=== PATIENT | female | born 1945 | race American Indian/Alaskan Native ===

== ENCOUNTER 2017-05-18 19:31 | Inpatient (IN) | payer MEDICARE ==
[2017-05-18 21:10] LABS: Basophils % (Auto) 0.8 % (0.0-1.8); Eosinophils % (Auto) 1.7 % (0.0-4.3); Hematocrit 39.9 % (30.3-42.9); Hemoglobin 13.1 gm/dl (10.1-14.3); Mean Corpuscular HGB Conc 33 % (30-34); Mean Corpuscular Hemoglobin 30 pg (28-32); Mean Corpuscular Volume 91 fl (79-97); Platelet Count 274 K/mm3 (140-440); Red Cell Distribution Width 15.2 % (13.2-15.2); White Blood Count 6.6 K/mm3 (4.5-11.0)
[2017-05-18] MEDS ORDERED: APRESOLINE IV ONE (21:12)
--- NOTE | 2017-05-18 21:16 | Emergency Department Report ---
ED Chest Pain HPI - General Chief Complaint: Chest Pain Stated Complaint: CHEST PAIN Time Seen by Provider: 05/18/17 20:49 Source: patient, family, EMS Mode of arrival: Stretcher Limitations: No Limitations - History of Present Illness Initial Comments: 71 YO FEMALE C/O SHORTNESS OF BREATH AND CHEST PRESSURE SINCE YESTERDAY. SHE HAS ALSO BEEN NAUSEATED AND VOMITED UP FOOD CONTENTS. SHE HAS NO RADIATION OF THE PRESSURE AND IS WEAK ON THE LEFT UPPER AND LOWER EXTREMITY FROM PRIOR CVA IN 11/2016. SH EWAS IN REHAB FROM MID NOVEMBER UNTIL MARCH 152016. SHE HAS H/ O RIGHT AND LEFT CVA AND HTN, DM TYPE II. SHE DENIES CHF/KS OR ANY RHYTHM PROBLEMS MD Complaint: other (COUGH) -: days(s) (1) Onset: during rest Pain Location: substernal Pain Radiation: none Severity: mild Severity scale (0 -10): 4 - Related Data Home Medications Medication Instructions Recorded Confirmed Last Taken Carvedilol 05/18/17 Unknown Docusate Sodium [Stool Softener] 100 mg PO 05/18/17 Unknown Meclizine [Antivert] 12.5 mg PO 05/18/17 Unknown Metformin HCl 500 mg PO 05/18/17 Unknown hydrALAZINE [Apresoline] 50 mg PO 05/18/17 Unknown traMADol [Ultram] 50 mg PO 05/18/17 Unknown Allergies Allergy/AdvReac Type Severity Reaction Status Date / Time Penicillins AdvReac Unknown Verified 05/18/17 20:18 Heart Score - HEART Score History: Highly suspicious EKG: Non-specific Age: > 65 Risk factors: > 3 risk factors or hx of atherosclerotic disease Troponin: < normal limit HEART Score: 7 ED Review of Systems ROS: Stated complaint: CHEST PAIN Other details as noted in HPI Constitutional: denies: chills, fever Eyes: denies: eye pain, eye discharge, vision change ENT: denies: ear pain, throat pain Respiratory: denies: cough, shortness of breath, wheezing Cardiovascular: denies: palpitations Endocrine: no symptoms reported Gastrointestinal: denies: abdominal pain, nausea, diarrhea Genitourinary: denies: urgency, dysuria, discharge Musculoskeletal: denies: back pain, joint swelling, arthralgia Skin: denies: rash, lesions Neurological: denies: headache, weakness, paresthesias Psychiatric: denies: anxiety, depression Hematological/Lymphatic: denies: easy bleeding, easy bruising ED Past Medical Hx - Past Medical History Previous Medical History?: Yes Hx Hypertension: Yes Hx Asthma: Yes - Surgical History Past Surgical History?: No - Social History Smoking Status: Unknown if ever smoked Substance Use Type: None - Medications Home Medications: Home Medications Medication Instructions Recorded Confirmed Last Taken Type Carvedilol 05/18/17 Unknown History Docusate Sodium [Stool Softener] 100 mg PO 05/18/17 Unknown History Meclizine [Antivert] 12.5 mg PO 05/18/17 Unknown History Metformin HCl 500 mg PO 05/18/17 Unknown History hydrALAZINE [Apresoline] 50 mg PO 05/18/17 Unknown History traMADol [Ultram] 50 mg PO 05/18/17 Unknown History ED Physical Exam - General Limitations: No Limitations General appearance: alert, in no apparent distress - Head Head exam: Present: atraumatic, normocephalic - Eye Eye exam: Present: normal appearance - ENT ENT exam: Present: mucous membranes moist - Neck Neck exam: Present: normal inspection, full ROM - Respiratory Respiratory exam: Present: normal lung sounds bilaterally. Absent: respiratory distress - Cardiovascular Cardiovascular Exam: Present: regular rate, normal rhythm. Absent: systolic murmur, diastolic murmur, rubs, gallop - GI/Abdominal GI/Abdominal exam: Present: soft, normal bowel sounds - Rectal Rectal exam: Present: deferred - Extremities Exam Extremities exam: Present: normal inspection, full ROM - Back Exam Back exam: Present: normal inspection, full ROM - Neurological Exam Neurological exam: Present: alert, oriented X3, CN II-XII intact, other (LEFT SIDED PARALYSIS) - Psychiatric Psychiatric exam: Present: normal affect, normal mood - Skin Skin exam: Present: warm, dry, intact, normal color. Absent: rash ED Course Vital Signs 05/18/17 05/18/17 05/18/17 17:06 19:54 20:00 Temperature Pulse Rate 88 93 H Respiratory 11 L 14 Rate Blood Pressure 112/42 226/116 O2 Sat by Pulse 100 90 97 Oximetry 05/18/17 05/18/17 05/18/17 20:14 20:16 20:30 Temperature 98.5 F Pulse Rate 96 H 94 H 91 H Respiratory 16 20 Rate Blood Pressure 202/105 202/125 112/42 O2 Sat by Pulse 94 95 97 Oximetry 05/18/17 05/18/17 05/18/17 20:45 20:46 21:00 Temperature Pulse Rate 89 82 Respiratory 24 10 L 10 L Rate Blood Pressure 112/42 237/119 O2 Sat by Pulse 96 98 99 Oximetry 05/18/17 05/18/17 05/18/17 21:16 21:30 21:46 Temperature Pulse Rate 85 94 H 83 Respiratory 19 18 11 L Rate Blood Pressure 233/110 233/110 256/145 O2 Sat by Pulse 100 97 97 Oximetry 05/18/17 05/18/17 05/18/17 22:00 22:16 22:30 Temperature Pulse Rate 90 92 H 105 H Respiratory 10 L 14 17 Rate Blood Pressure 256/145 239/118 O2 Sat by Pulse 97 97 99 Oximetry 05/18/17 22:46 Temperature Pulse Rate 115 H Respiratory 17 Rate Blood Pressure 232/125 O2 Sat by Pulse 98 Oximetry DELMIS score - Delmis Score Age > 65: (1) Yes Aspirin use within the Past 7 Days: (1) Yes 3 or more CAD Risk Factors: (1) Yes 2 or more Angina events in past 24 hrs: (0) No Known CAD with more than 50% Stenosis: (0) No Elevated Cardiac Markers: (0) No ST Deviation Greater than 0.5mm: (0) No DELMIS Score: 3 ED Medical Decision Making - Lab Data Result diagrams: 05/18/17 20:25 05/18/17 21:25 - EKG Data -: EKG Interpreted by Ny EKG shows normal: sinus rhythm, axis, intervals Rate: normal (87) - EKG Data Interpretation: other (Q IN TO V2) - Radiology Data Radiology results: report reviewed (CXR:LUNGS CLEAR) Critical care attestation.: If time is entered above; I have spent that time in minutes in the direct care of this critically ill patient, excluding procedure time. ED Disposition Clinical Impression: Unstable angina, Hypertension associated with diabetes, Hyperglycemia Dyspnea Qualifiers: Dyspnea type: unspecified Qualified Code(s): R06.00 - Dyspnea, unspecified Disposition: OP ADMIT IP TO THIS HOSP Is pt being admited?: Yes Does the pt Need Aspirin: Yes Condition: Stable Instructions: Angina (ED), Diabetes Mellitus Type 2 in Adults (ED) Referrals: PRETTY JAY MD [Primary Care Provider] - 3-5 Days Time of Disposition: 23:07 (DR ELIAZAR GUDINO AND WILL ADMIT THE PT TO THE HOSPITAL)
[2017-05-18 21:20] LABS: INR 0.88 (0.87-1.13)
[2017-05-18 21:59] LABS: Anion Gap 20 mmol/L; BUN/Creatinine Ratio 13; Blood Urea Nitrogen 10 mg/dL (7-17); Carbon Dioxide 27 mmol/L (22-30); Chloride 98.5 mmol/L (98-107); Glucose 123 mg/dL (65-100); Potassium 3.7 mmol/L (3.6-5.0); Sodium 142 mmol/L (137-145)
--- NOTE | 2017-05-18 22:06 | XRay Report ---
FINAL REPORT EXAM: XR CHEST 1V AP HISTORY: CHEST PAIN COMPARISON: None available. FINDINGS: Frontal view(s) of the chest obtained. Cardiac silhouette within normal limits. No gross consolidation or effusion. No pneumothorax. Tiny calcified granuloma at the right lung base. Mild tortuosity of the thoracic aorta. IMPRESSION: No grossly acute findings.
[2017-05-18 22:07] LABS: Alanine Aminotransferase 13 units/L (7-56); Albumin 4.2 g/dL (3.9-5); Albumin/Globulin Ratio 1.1 %; Alkaline Phosphatase 95 units/L (35-129); Total Protein 8.1 g/dL (6.3-8.2)
[2017-05-18 22:08] LABS: Bilirubin,Direct < 0.2 mg/dL (0-0.2); Bilirubin,Indirect 0.4 mg/dL
[2017-05-18] MEDS ORDERED: CATAPRES PO ONE (23:03)
[2017-05-18] MEDS ORDERED: CATAPRES ONE (23:08)
[2017-05-19] MEDS ORDERED: MORPHINE IV PRN
[2017-05-19] MEDS ORDERED: TYLENOL PO PRN
[2017-05-19] MEDS ORDERED: ZOFRAN IV PRN
[2017-05-19] MEDS ORDERED: DULCOLAX PR PRN
[2017-05-19] MEDS ORDERED: AMBIEN PO PRN
[2017-05-19] MEDS ORDERED: PERCOCET 5/325 PO PRN
[2017-05-19] MEDS ORDERED: D5NS 1,000 ML IV SCH
[2017-05-19] MEDS ORDERED: MILK OF MAGNESIA PO PRN
--- NOTE | 2017-05-19 | History and Physical Report ---
History of Present Illness Date of examination: 05/19/17 Date of admission: 05/18/2017 to Chief complaint: Chief complaint Chest pain since yesterday History of present illness: History of Present Illness 71-year-old female with past medical history of hyperten and diabetes and recent cerebrovascular accident in November 2016 comes in for chest pressure since yesterday. Pain is about 8 on 10. Associated with nausea and vomiting x 1. No radiation or shortness of breath History of hypertension diabetes and CVA complicated with left hemiparesis.no shortness of breath. No diaphoresis. Past Medical History Previous Medical History?: Yes Hx Hypertension: Yes Hx Asthma: Yes Surgical History Past Surgical History?: No Social History Smoking Status: Unknown if ever smoked Substance Use Type: None Medications Home Medications: Home Medications Medication Instructions Recorded Confirmed Last Taken Type Carvedilol 05/18/17 Unknown History Docusate Sodium [Stool Softener] 100 mg PO 05/18/17 Unknown History Meclizine [Antivert] 12.5 mg PO 05/18/17 Unknown History Metformin HCl 500 mg PO 05/18/17 Unknown History hydrALAZINE [Apresoline] 50 mg PO 05/18/17 Unknown History traMADol [Ultram] 50 mg PO 05/18/17 Unknown History Review of Systems ROS: Stated complaint: CHEST PAIN Other details as noted in HPI Constitutional: denies: chills, fever Eyes: denies: eye pain, eye discharge, vision change ENT: denies: ear pain, throat pain Respiratory: denies: cough, shortness of breath, wheezing Cardiovascular: denies: palpitations Endocrine: no symptoms reported Gastrointestinal: denies: abdominal pain, nausea, diarrhea Genitourinary: denies: urgency, dysuria, discharge Musculoskeletal: denies: back pain, joint swelling, arthralgia Skin: denies: rash, lesions Neurological: denies: headache, weakness, paresthesias Psychiatric: denies: anxiety, depression Hematological/Lymphatic: denies: easy bleeding, easy bruising Medications and Allergies Allergies Allergy/AdvReac Type Severity Reaction Status Date / Time Penicillins AdvReac Unknown Verified 05/18/17 20:18 Home Medications Medication Instructions Recorded Confirmed Last Taken Type Carvedilol 05/18/17 Unknown History Docusate Sodium [Stool Softener] 100 mg PO BID 05/18/17 05/19/17 Unknown History Meclizine [Antivert] 12.5 mg PO 05/18/17 Unknown History Metformin HCl 500 mg PO 05/18/17 Unknown History hydrALAZINE [Apresoline] 50 mg PO 05/18/17 Unknown History traMADol [Ultram] 50 mg PO 05/18/17 Unknown History Active Meds: Active Medications Aspirin (Aspirin) 325 mg PO QDAY MARCELLA Exam - Constitutional Vitals: Temp Pulse Resp BP Pulse Ox 98.5 F 116 H 22 171/135 98 05/18/17 20:14 05/18/17 23:30 05/18/17 23:30 05/18/17 23:30 05/18/17 23:30 General appearance: Present: no acute distress, well-nourished - EENT Eyes: Present: PERRL ENT: hearing intact, clear oral mucosa - Neck Neck: Present: supple, normal ROM - Respiratory Respiratory effort: normal Respiratory: bilateral: CTA - Cardiovascular Heart rate: 80 Rhythm: regular Heart Sounds: Present: S1 & S2. Absent: rub, click - Extremities Extremities: no ischemia, pulses intact, pulses symmetrical, No edema Peripheral Pulses: within normal limits - Abdominal General gastrointestinal: Present: soft, non-tender, non-distended, normal bowel sounds Female genitourinary: Present: normal - Integumentary Integumentary: Present: clear, warm, dry - Musculoskeletal Musculoskeletal: gait normal, strength equal bilaterally - Psychiatric Psychiatric: appropriate mood/affect, intact judgment & insight - Neurologic Neurologic: CNII-XII intact, moves all extremities - Allied Health Allied health notes reviewed: nursing, case management Results - Labs CBC & Chem 7: 05/18/17 20:25 05/18/17 21:25 Labs: Laboratory Last Values WBC 6.6 K/mm3 (4.5-11.0) 05/18/17 20:25 RBC 4.40 M/mm3 (3.65-5.03) 05/18/17 20:25 Hgb 13.1 gm/dl (10.1-14.3) 05/18/17 20:25 Hct 39.9 % (30.3-42.9) 05/18/17 20:25 MCV 91 fl (79-97) 05/18/17 20:25 MCH 30 pg (28-32) 05/18/17 20:25 MCHC 33 % (30-34) 05/18/17 20:25 RDW 15.2 % (13.2-15.2) 05/18/17 20:25 Plt Count 274 K/mm3 (140-440) 05/18/17 20:25 Lymph % (Auto) 40.2 % (13.4-35.0) H 05/18/17 20:25 King % (Auto) 11.7 % (0.0-7.3) H 05/18/17 20:25 Eos % (Auto) 1.7 % (0.0-4.3) 05/18/17 20:25 Baso % (Auto) 0.8 % (0.0-1.8) 05/18/17 20:25 Lymph # 2.6 K/mm3 (1.2-5.4) 05/18/17 20:25 King # 0.8 K/mm3 (0.0-0.8) 05/18/17 20:25 Eos # 0.1 K/mm3 (0.0-0.4) 05/18/17 20:25 Baso # 0.1 K/mm3 (0.0-0.1) 05/18/17 20:25 Seg Neutrophils % 45.6 % (40.0-70.0) 05/18/17 20:25 Seg Neutrophils # 3.0 K/mm3 (1.8-7.7) 05/18/17 20:25 PT 12.4 Sec. (12.2-14.9) 05/18/17 20:25 INR 0.88 (0.87-1.13) 05/18/17 20:25 D-Dimer 263 ng/mlDDU (0-234) H 05/18/17 20:25 Sodium 142 mmol/L (137-145) 05/18/17 21:25 Potassium 3.7 mmol/L (3.6-5.0) 05/18/17 21:25 Chloride 98.5 mmol/L (98-107) 05/18/17 21:25 Carbon Dioxide 27 mmol/L (22-30) 05/18/17 21:25 Anion Gap 20 mmol/L 05/18/17 21:25 BUN 10 mg/dL (7-17) 05/18/17 21:25 Creatinine 0.8 mg/dL (0.7-1.2) 05/18/17 21:25 Estimated GFR > 60 ml/min 05/18/17 21:25 BUN/Creatinine Ratio 13 % 05/18/17 21:25 Glucose 123 mg/dL (65-100) H 05/18/17 21:25 Calcium 10.0 mg/dL (8.4-10.2) 05/18/17 21:25 Total Bilirubin 0.60 mg/dL (0.1-1.2) 05/18/17 20:25 Direct Bilirubin < 0.2 mg/dL (0-0.2) 05/18/17 20:25 Indirect Bilirubin 0.4 mg/dL 05/18/17 20:25 AST 14 units/L (5-40) 05/18/17 20:25 ALT 13 units/L (7-56) 05/18/17 20:25 Alkaline Phosphatase 95 units/L (35-129) 05/18/17 20:25 Troponin T < 0.010 ng/mL (0.00-0.029) 05/18/17 21:25 NT-Pro-B Natriuret Pep 529.4 pg/mL (0-900) 05/18/17 21:19 Total Protein 8.1 g/dL (6.3-8.2) 05/18/17 20:25 Albumin 4.2 g/dL (3.9-5) 05/18/17 20:25 Albumin/Globulin Ratio 1.1 % 05/18/17 20:25 Short CBC 05/18/17 Range/Units 20:25 WBC 6.6 (4.5-11.0) K/mm3 Hgb 13.1 (10.1-14.3) gm/dl Hct 39.9 (30.3-42.9) % Plt Count 274 (140-440) K/mm3 BMP 05/18/17 21:25 Sodium 142 Potassium 3.7 Chloride 98.5 Carbon Dioxide 27 BUN 10 Creatinine 0.8 Glucose 123 H Calcium 10.0 Cardiac Enzymes 05/18/17 05/18/17 05/19/17 Range/Units 21:25 23:03 02:48 Troponin T < 0.010 < 0.010 < 0.010 (0.00-0.029) ng/mL Liver Function 05/18/17 Range/Units 20:25 Total Bilirubin 0.60 (0.1-1.2) mg/dL Direct Bilirubin < 0.2 (0-0.2) mg/dL AST 14 (5-40) units/L ALT 13 (7-56) units/L Alkaline Phosphatase 95 (35-129) units/L Albumin 4.2 (3.9-5) g/dL - Imaging and Cardiology EKG: report reviewed (normal sinus rhythm no acute ST-T wave changes) Assessment and Plan Advance Directives: Yes (full code) VTE prophylaxis?: Chemical Plan of care discussed with patient/family: Yes - Patient Problems (1) Chest pain Current Visit: Yes Status: Acute Qualifiers: Chest pain type: unspecified Qualified Code(s): R07.9 - Chest pain, unspecified Plan to address problem: chest pain pathway initiated. Patient to get serial cardiac enzymes and Lexiscan in the morning. Differential was of costochondrit and gastroesophageal of his history (2) Hypertension Current Visit: Yes Status: Chronic Qualifiers: Hypertension type: essential hypertension Qualified Code(s): I10 - Essential (primary) hypertension Plan to address problem: continue antihypertensives in the form of hydralazineand Coreg. (3) Type 2 diabetes mellitus Current Visit: Yes Status: Chronic Qualifiers: Diabetes mellitus complication status: without complication Diabetes mellitus care home insulin use: without termite technician use Qualified Code(s): E11.9 - Type 2 diabetes mellitus without complications Plan to address problem: check A1c. coverage for now (4) Chronic pain Current Visit: Yes Status: Chronic Qualifiers: Chronic pain type: chronic pain syndrome Qualified Code(s): G89.4 - Chronic pain syndrome Plan to address problem: on tramadol (5) DVT prophylaxis Current Visit: Yes Status: Acute Plan to address problem: on Lovenox
[2017-05-19] MEDS ORDERED: APRESOLINE PO SCH (06:00)
[2017-05-19 07:17] LABS: Creatine Kinase MB 1.2 ng/mL (0.0-4.0)
[2017-05-19 07:19] LABS: Creatine Kinase 78 units/L (30-135)
[2017-05-19] MEDS ORDERED: LEXISCAN IV ONE ×2 (09:18→09:39)
[2017-05-19 10:50] LABS: Creatine Kinase MB 1.3 ng/mL (0.0-4.0)
[2017-05-19 10:51] LABS: Creatine Kinase 58 units/L (30-135)
[2017-05-19] MEDS ORDERED: ZOFRAN ONE (11:52)
[2017-05-19] MEDS ORDERED: APRESOLINE IV PRN (13:54)
--- NOTE | 2017-05-19 13:55 | Progress Note ---
Assessment and Plan Assessment and plan: Patient is a 71-year-old female with past medical history of hypertension and diabetes and recent cerebrovascular accident in November 2016 comes in for chest pressure since yesterday. Patient was in Rehab from November till mar 15 2017 per hx. Patient informs me that she had a prior stroke in the 80s That affected the right side. Pain is about 8 on 10. Associated with nausea and vomiting x 1. No radiation or shortness of breath History of hypertension diabetes and CVA complicated with left hemiparesis.no shortness of breath. No diaphoresis. Atypical chest pain Left Hemiparesis Hypertensive urgency Type 2 DM with Hyperglycemia Chronic pain syndrom Sinus Tachycardia PLAN Supportive care STRESS TEST NEG Chest pain likely secondary to Hypertension Insulin adjusted Resume Home meds May need adjustment BP Meds Continue chronic management Unsure why patient is not on ASA and Statin, patient not sure, states she was on before. Had a non life threatening GI bleed in the 80s. Now with a second stroke. Will start low dose ASA and statin and patient and family will follow with PCP DVT/GI prophy History Interval history: Patient seen and examined in no acute distress. Hospitalist Physical - Physical exam Narrative exam: General appearance: Present: no acute distress, well-nourished - EENT Eyes: Present: PERRL ENT: hearing intact, clear oral mucosa - Neck Neck: Present: supple, normal ROM - Respiratory Respiratory effort: normal Respiratory: bilateral: CTA - Cardiovascular Heart rate: 80 Rhythm: regular Heart Sounds: Present: S1 & S2. Absent: rub, click - Extremities Extremities: no ischemia, pulses intact, pulses symmetrical, No edema Peripheral Pulses: within normal limits - Abdominal General gastrointestinal: Present: soft, non-tender, non-distended, normal bowel sounds Female genitourinary: Present: normal - Integumentary Integumentary: Present: clear, warm, dry - Musculoskeletal Musculoskeletal: gait normal, strength equal bilaterally - Psychiatric Psychiatric: appropriate mood/affect, intact judgment & insight - Neurologic Neurologic: CNII-XII intact, left lower ext with motor strength 3/5 - Constitutional Vitals: Temp Pulse Resp BP Pulse Ox 97.7 F 118 H 18 202/92 96 05/19/17 07:49 05/19/17 11:49 05/19/17 07:49 05/19/17 11:49 05/19/17 07:50 General appearance: Present: no acute distress, well-nourished Results - Labs CBC & Chem 7: 05/20/17 04:30 05/20/17 04:30 Labs: Laboratory Last Values WBC 6.6 K/mm3 (4.5-11.0) 05/18/17 20:25 RBC 4.40 M/mm3 (3.65-5.03) 05/18/17 20:25 Hgb 13.1 gm/dl (10.1-14.3) 05/18/17 20:25 Hct 39.9 % (30.3-42.9) 05/18/17 20:25 MCV 91 fl (79-97) 05/18/17 20:25 MCH 30 pg (28-32) 05/18/17 20:25 MCHC 33 % (30-34) 05/18/17 20:25 RDW 15.2 % (13.2-15.2) 05/18/17 20:25 Plt Count 274 K/mm3 (140-440) 05/18/17 20:25 Lymph % (Auto) 40.2 % (13.4-35.0) H 05/18/17 20:25 Kleberg % (Auto) 11.7 % (0.0-7.3) H 05/18/17 20:25 Eos % (Auto) 1.7 % (0.0-4.3) 05/18/17 20:25 Baso % (Auto) 0.8 % (0.0-1.8) 05/18/17 20:25 Lymph # 2.6 K/mm3 (1.2-5.4) 05/18/17 20:25 Kleberg # 0.8 K/mm3 (0.0-0.8) 05/18/17 20:25 Eos # 0.1 K/mm3 (0.0-0.4) 05/18/17 20:25 Baso # 0.1 K/mm3 (0.0-0.1) 05/18/17 20:25 Seg Neutrophils % 45.6 % (40.0-70.0) 05/18/17 20:25 Seg Neutrophils # 3.0 K/mm3 (1.8-7.7) 05/18/17 20:25 PT 12.4 Sec. (12.2-14.9) 05/18/17 20:25 INR 0.88 (0.87-1.13) 05/18/17 20:25 D-Dimer 263 ng/mlDDU (0-234) H 05/18/17 20:25 Sodium 142 mmol/L (137-145) 05/18/17 21:25 Potassium 3.7 mmol/L (3.6-5.0) 05/18/17 21:25 Chloride 98.5 mmol/L (98-107) 05/18/17 21:25 Carbon Dioxide 27 mmol/L (22-30) 05/18/17 21:25 Anion Gap 20 mmol/L 05/18/17 21:25 BUN 10 mg/dL (7-17) 05/18/17 21:25 Creatinine 0.8 mg/dL (0.7-1.2) 05/18/17 21:25 Estimated GFR > 60 ml/min 05/18/17 21:25 BUN/Creatinine Ratio 13 % 05/18/17 21:25 Glucose 123 mg/dL (65-100) H 05/18/17 21:25 POC Glucose 130 (70-105) H 05/19/17 07:57 Hemoglobin A1c 7.2 % (4-6) H 05/19/17 00:09 Calcium 10.0 mg/dL (8.4-10.2) 05/18/17 21:25 Total Bilirubin 0.60 mg/dL (0.1-1.2) 05/18/17 20:25 Direct Bilirubin < 0.2 mg/dL (0-0.2) 05/18/17 20:25 Indirect Bilirubin 0.4 mg/dL 05/18/17 20:25 AST 14 units/L (5-40) 05/18/17 20:25 ALT 13 units/L (7-56) 05/18/17 20:25 Alkaline Phosphatase 95 units/L (35-129) 05/18/17 20:25 Total Creatine Kinase 58 units/L (30-135) 05/19/17 10:06 CK-MB (CK-2) 1.3 ng/mL (0.0-4.0) 05/19/17 10:06 CK-MB (CK-2) Rel Index 2.2 (0-4) 05/19/17 10:06 Troponin T < 0.010 ng/mL (0.00-0.029) 05/19/17 10:06 NT-Pro-B Natriuret Pep 529.4 pg/mL (0-900) 05/18/17 21:19 Total Protein 8.1 g/dL (6.3-8.2) 05/18/17 20:25 Albumin 4.2 g/dL (3.9-5) 05/18/17 20:25 Albumin/Globulin Ratio 1.1 % 05/18/17 20:25
[2017-05-19] MEDS: COREG PO SCH (14:05)
[2017-05-19] MEDS: ASPIRIN PO SCH (14:05)
[2017-05-19] MEDS: APRESOLINE PO SCH (14:06)
[2017-05-19] MEDS: COLACE PO SCH ×2 (14:07→21:41)
[2017-05-19] MEDS: LOVENOX SUB-Q SCH (14:07)
[2017-05-19] MEDS: GLUCOPHAGE PO SCH ×2 (14:11→17:25)
[2017-05-19 16:03] LABS: Creatine Kinase MB 1.3 ng/mL (0.0-4.0)
[2017-05-19 16:04] LABS: Creatine Kinase 57 units/L (30-135)
[2017-05-19] MEDS: ULTRAM PO SCH (17:25)
[2017-05-19] MEDS: ANTIVERT PO SCH ×2 (17:27→21:41)
[2017-05-19] MEDS ORDERED: PRAVACHOL PO SCH (22:00)
--- NOTE | 2017-05-19 22:23 | Treadmill Report ---
NUCLEAR STUDY REASON FOR STUDY: Chest pain. IMAGING PROTOCOL: The patient received 10 mCi of Technetium 99m Tetrofosmin for resting image and 28 mCi of Technetium 99m Tetrofosmin for stress imaging. The imaging for the whole procedure was completed 30-90 minutes following the initial injection of Technetium 99m tetrofosmin. The SPECT imaging in the 180 degree arc was performed in the right anterior oblique projection. Computerized reconstruction of the images was performed for analysis. of the images was performed for analysis. IMAGING RESULTS: Normal cavity size from stress to rest. Normal distribution of radionuclide in the anterior, inferior, septal, and apical regions. Gated SPECT, EF of 62% with no wall motion abnormality. The patient infused Lexiscan with no EKG changes. SUMMARY: 1. Negative Lexiscan EKG. 2. Normal rest and stress myocardial perfusion scan. No stress ischemia. No wall motion abnormality. Gated SPECT, EF is 62%. JOB# [id number] MIGUELINA/MERE
[2017-05-20 05:31] LABS: Hematocrit 37.6 % (30.3-42.9); Hemoglobin 12.2 gm/dl (10.1-14.3); Mean Corpuscular HGB Conc 32 % (30-34); Mean Corpuscular Hemoglobin 30 pg (28-32); Mean Corpuscular Volume 92 fl (79-97); Platelet Count 257 K/mm3 (140-440); Red Blood Count 4.09 M/mm3 (3.65-5.03); Red Cell Distribution Width 15.3 % (13.2-15.2); White Blood Count 6.2 K/mm3 (4.5-11.0)
[2017-05-20 05:53] LABS: Albumin 3.5 g/dL (3.9-5); Albumin/Globulin Ratio 0.9 %; Bilirubin,Total 0.5 mg/dL (0.1-1.2); Calcium 9.4 mg/dL (8.4-10.2); Chloride 99.5 mmol/L (98-107); Potassium 3.1 mmol/L (3.6-5.0); Total Protein 7.4 g/dL (6.3-8.2)
[2017-05-20] MEDS: ULTRAM PO SCH ×2 (06:16→09:22)
[2017-05-20] MEDS: COREG PO SCH ×2 (06:16→09:23)
[2017-05-20] MEDS: APRESOLINE PO SCH ×3 (06:16→13:36)
[2017-05-20 06:25] LABS: Basophils % (Manual) 0 % (0.0-1.8); Blastocytes % (Manual) 0 %
[2017-05-20 06:26] LABS: Anisocytosis 1+; Diff Status Complete; Ovalocytes 1+; Stomatocytes 1+
[2017-05-20] MEDS: LOVENOX SUB-Q SCH (09:21)
[2017-05-20] MEDS: ASPIRIN PO SCH (09:21)
[2017-05-20] MEDS: COLACE PO SCH (09:22)
[2017-05-20] MEDS: GLUCOPHAGE PO SCH (09:22)
[2017-05-20] MEDS: ANTIVERT PO SCH (09:23)
[2017-05-20] MEDS ORDERED: NACL 0.9% 1000 ML 1,000 ML IV ONE (09:39)
--- NOTE | 2017-05-20 10:40 | Discharge Summary ---
Providers - Providers Date of Admission: 05/18/17 23:40 Attending physician: STEFAN HITCHCOCK MD Primary care physician: PRETTY JAY Hospitalization Reason for admission: CHEST PAIN Condition: Stable Hospital course: Patient is a 71-year-old female with past medical history of hypertension and diabetes and recent cerebrovascular accident in November 2016 comes in for chest pressure since yesterday. Patient was in Rehab from November till mar 15 2017 per hx. Patient informs me that she had a prior stroke in the 80s That affected the right side. Pain is about 8 on 10. Associated with nausea and vomiting x 1. No radiation or shortness of breath History of hypertension diabetes and CVA complicated with left hemiparesis.no shortness of breath. No diaphoresis. Patient presented to have a stress test which was normal again or not sure why the patient is not on aspirinI despite the patient on low-dose aspirin and also statin family will follow up primary care physician bioinformatics assistant stable insulin was adjusted conjunctival discharge stable tachycardia resolved. Atypical chest pain atypical likely costochondritis Left Hemiparesis Hypertensive urgency Type 2 DM with Hyperglycemia Chronic pain syndrom Sinus Tachycardia Disposition: DC-01 TO HOME OR SELFCARE Time spent for discharge: 35 mins Core Measure Documentation - Palliative Care Palliative Care/ Comfort Measures: Not Applicable - Core Measures Any of the following diagnoses?: none - VTE Discharge Requirements Deep Vein Thrombosis/Pulmonary Embolism Present on Admission: No Exam - Physical Exam Narrative exam: General appearance: Present: no acute distress, well-nourished - EENT Eyes: Present: PERRL ENT: hearing intact, clear oral mucosa - Neck Neck: Present: supple, normal ROM - Respiratory Respiratory effort: normal Respiratory: bilateral: CTA - Cardiovascular Heart rate: 80 Rhythm: regular Heart Sounds: Present: S1 & S2. Absent: rub, click - Extremities Extremities: no ischemia, pulses intact, pulses symmetrical, No edema Peripheral Pulses: within normal limits - Abdominal General gastrointestinal: Present: soft, non-tender, non-distended, normal bowel sounds Female genitourinary: Present: normal - Integumentary Integumentary: Present: clear, warm, dry - Musculoskeletal Musculoskeletal: gait normal, strength equal bilaterally - Psychiatric Psychiatric: appropriate mood/affect, intact judgment & insight - Neurologic Neurologic: CNII-XII intact, left lower ext with motor strength 3/5 - Constitutional Vitals: Temp Pulse Resp BP Pulse Ox 97.6 F 72 18 125/72 100 05/20/17 07:36 05/20/17 09:23 05/20/17 07:36 05/20/17 09:23 05/20/17 07:36 Plan Activity: advance as tolerated, fall precautions Diet: low cholesterol, low salt, diabetic Special Instructions: record daily BP diary, record blood sugar diary, physical therapy, occupational therapy Follow up with: PRETTY JAY MD [Primary Care Provider] - 3-5 Days Prescriptions: Pravastatin [Pravachol] 80 mg PO QHS #30 tablet Aspirin [Aspirin EC] 81 mg PO DAILY #30 tablet.
--- NOTE | 2017-05-20 13:22 | Vascular Lab Report ---
LOWER EXTREMITY VENOUS DUPLEX: REASON FOR EXAM: Deep venous thrombosis, hypertension, diabetes, stroke. COMMENTS ON THE RIGHT: All veins visualized are freely compressible without evidence of internal echogenicity. Flow is spontaneous and phasic throughout. COMMENTS ON THE LEFT: All veins visualized are freely compressible without evidence of internal echogenicity. Flow is spontaneous and phasic throughout. IMPRESSION: No evidence of acute or chronic deep venous thrombosis in either lower extremity.
[2017-05-20 13:37] VITALS: BP 106/57
== END 2017-05-20 15:59 | disposition home or self-care (01) | DRG 305 ==
LOC: ED 19:31 → 4A 23:40
PROVIDERS: ADMIT Internal Medicine; ATTEND Internal Medicine
DX: I16.0 Hypertensive urgency (principal); I69.354 Hemiplegia and hemiparesis following cerebral infarction affecting left non-dominant side; I10 Essential (primary) hypertension; E11.65 Type 2 diabetes mellitus with hyperglycemia; G89.4 Chronic pain syndrome; R00.0 Tachycardia, unspecified; Z79.899 Other long term (current) drug therapy; Z88.0 Allergy status to penicillin
CPT/HCPCS: 36415; 71010; 78452; 80048; 80053; 80074; 82550; 82553; 82962; 83036; 83880; 84484; 85007; 85025; 85379; 85610; 93005; 93010; 93017; 93970; 96374; A9270-GY; A9502; J0360; J1650; J2405; J2785; J7030